=== PATIENT | female | born 1985 | race Caucasian/White ===

== ENCOUNTER 2016-09-04 07:02 | Day surgery (SDC) | payer BC, MEDICARE ==
[~2016-09-04 07:02] MED LIST: ACETAMINOPHEN 1000MG/100 ML PREMIX IV ONE; BUPIVACAINE HCL IV ONE; CLINDAMYCIN 600MG/50ML PREMIX 50 ML IVPB ONE; FAMOTIDINE 20MG TABLET PO ONE; HYDROMORPHONE HCL IV ONE; HYDROMORPHONE HCL/PF 0.002 MG in 0.9 % SODIUM CHLORIDE 10ML VIA 0.998 ML IVP ONE; MECLIZINE 25 MG TABLET PO ONE; METOCLOPRAMIDE 10 MG TABLET PO ONE; [UNRECOGNIZED DRUG - OTHER] IV ONE
--- NOTE | 2016-09-04 07:26 | History and Physical Report ---
CHIEF COMPLAINT/HISTORY OF CHIEF COMPLAINT: This patient with a history of intractable lumbar radiculitis managed by spinal opioid infusion system has had some fluctuations in body weight with an increasing amount of pain at the pump pouch site at the posterior gluteal margin. A surgical evaluation had suggested it be moved to the abdomen. We saw the patient on evaluation and thought that perhaps moving it above the belt line would be a better option. Since moving it across towards the abdominal region would require a catheter resection. We thought we could stabilize the pump, get it away from the posterior gluteal margin, put it above the belt line and meet all of the requirements and at the same time not require a catheter revision. The patient liked the idea and is here for pump relocation. PAST MEDICAL HISTORY: Noncontributory. PAST SURGICAL HISTORY: Pump implant. MEDICATIONS ON ADMISSION: List to be provided. ALLERGIES: None. FAMILY/PSYCHOSOCIAL HISTORY: Cigarette smoking. Caffeine consumption. Family history - Asthma and cancer. SYSTEMS REVIEW: The patient is appropriate in no acute distress. The remainder of the systems review is positive for degenerative arthritis. PHYSICAL EXAMINATION: Height is 5'7", weight is 200 pounds. No vital signs. HEENT: Within normal limits. LUNGS: Clear. HEART: Regular rate and rhythm. ABDOMEN: Nontender. MUSCULOSKELETAL: Examination of the musculoskeletal system shows the pump in the posterior gluteal margin. The incisional site is intact. The pump at the left posterior gluteal margin incision is intact. Sensory edwards are intact. NEUROLOGIC: Cranial nerves are intact. IMPRESSION: 1. INTRACTABLE LUMBAR RADICULITIS. 2. INTERSPINAL OPIOID INFUSION SYSTEM HYDROMORPHONE. PLAN: The patient is here for relocation of the pump because of discomfort, weight loss, and shifting of the pump within the pouch. The procedure will be considered outpatient. The patient understands that this will require an entirely new incision and that she will exit the room with two incisions, one the previous pouch and the other new pouch. The risks, side effects, and complications have been carefully reviewed and discussed, she understands and has consented. ROSETTE BELLO D.O. Date & Time JOB NUMBER: [id number] [facility]
[2016-09-04] MEDS ORDERED: BUPIVACAINE 0.5% W/EPI MPF 30 ML VIAL IVP ONE (12:46)
[2016-09-04] MEDS ORDERED: LIDOCAINE 1% W/EPI 1:200,000 MPF 30ML SQ ONE (12:46)
[2016-09-04] MEDS ORDERED: CLINDAMYCIN 600MG/4 ML VIAL IV ONE (12:46)
[2016-09-04] MEDS ORDERED: HYDROMORPHONE HCL 2 MG/ML VIAL IV ONE (12:46)
[2016-09-04] MEDS ORDERED: OXYCODONE/APAP 10MG-325MG TABLET PO ONE (12:46)
[2016-09-04] MEDS ORDERED: MIDAZOLAM HCL 2MG/2ML VIAL IV ONE (15:53)
[2016-09-04] MEDS ORDERED: FENTANYL PF 100MCG/2ML VIAL IV ONE (15:53)
[2016-09-04] MEDS ORDERED: LIDOCAINE 2% MDV (20MG/ML) 20ML VIAL IV ONE (15:53)
[2016-09-04] MEDS ORDERED: PROPOFOL 10 MG/ML VIAL IV ONE (15:53)
[2016-09-04] MEDS ORDERED: *PACU ONLY* KETAMINE HCL 10 MG/ML (20ML) VIAL IV ONE (15:53)
--- NOTE | 2016-09-04 16:45 | Operative Note - [place] ---
DATE OF SURGERY: 09/04/16 PREOPERATIVE DIAGNOSES: 1. INTRACTABLE LUMBAR RADICULITIS. 2. SPINAL OPIOID INFUSION SYSTEM WITH PAIN AT PUMP POUCH. OPERATION: 1. FLUOROSCOPICALLY-GUIDED INCISION, SUBCUTANEOUS DISSECTION, AND REMOVAL OF PUMP AT LEFT POSTERIOR GLUTEAL MARGIN BELOW BELT LINE. 2. INCISION, SUBCUTANEOUS DISSECTION, AND CREATION OF SUBCUTANEOUS POUCH LEFT FLANK ABOVE BELT LINE. 3. RESECTION INTERNAL SPINAL CATHETER AT INITIAL PUMP POUCH BELOW BELT LINE. INTERFACE INDWELLING CATHETER WITH SECONDARY CATHETER COMPONENT BY WAY OF CONNECTOR. 4. TUNNELING AND PLACEMENT OF REVISED CATHETER INTO FLANK POUCH. 5. INTERFACE NEW PUMP FILLED HYDROMORPHONE/BUPIVACAINE WITH RESECTED CATHETER. PLACEMENT OF PUMP CATHETER COMBINATION INTO FLANK POUCH SECURING TO POSTERIOR FASCIA USING NONABSORBABLE SUTURE TWO POINTS PUMP EYELETS. 6. WITH PUMP INTO FLANK POUCH, 24-GAUGE MATSON NEEDLE THROUGH ACCESS PORT CLEARING PUMP CATHETER OF OPIOID AND CSF MIXTURE. 7. DIAGNOSTIC MYELOGRAPHY WITH RADIOLOGIC SUPERVISION AND INTERPRETATION CONFIRMING CATHETER POSITION L1. 8. CLOSURE OF BOTH INCISIONS VICRYL FOR FASCIA, RUNNING SUBCUTICULAR VICRYL FOR SKIN. DERMABOND CLOSURE. 9. PROGRAMMING OF PUMP INITIAL PARAMETERS HYDROMORPHONE AND BUPIVACAINE AT 3.9 MG PER DAY. SURGEON: EUSEBIO RENDON D.O. ANESTHESIA: LOCAL SEDATION. ANESTHESIA PROVIDER: WANG FITZGERALD CRNA. INDICATION: This patient presents with a history of intractable lumbar radiculitis managed with a spinal opioid infusion system Hydromorphone and Bupivacaine. The pump position was below the belt line on the left. Because of weight loss and usage with respect to pump migration from weight loss, the pump pouch and pump became painful limited with respect to activities. After multiple conservative efforts failed to desensitizing the area, the patient requested relocation of the pump above the belt line. Because the pump is being removed and repositioned into a location multiple pump diameters away from the initial site, it was felt appropriate to replace the pump. The pump was being refilled at the same time. A catheter resection will be necessary to extend the catheter into the new pouch. PROCEDURE: Intravenous line, vital sign monitoring, IV sedation by Anesthesia. Patient position prone. Sterile prep, sterile technique and under imaging, the previous pump below the belt line infiltrated, incision made, and subcutaneous dissection was conducted to the pump. The pump was removed intact along with the Dacron sleeve. The catheter and the pouch were clamped above the belt line at a site picked by the patient. Skin infiltrated, incision made, and subcutaneous dissection was used to form a pouch of suitable size and depth for the pump at the left flank. Antibiotic irrigation. Bovie for hemostasis. A tunneling tool was then used to carry a new pump catheter component interfaced to the pump from the new pouch down into the previous pouch. The second catheter was then interfaced with the indwelling catheter. A catheter resection was performed interfacing indwelling with second catheter by way of connector. A new pump placed onto the field, 20 mL Programmable [employer] filled previous with Hydromorphone and Bupivacaine. The revised catheter was then interfaced to the pump. The pump was placed into the new pouch and secured to the posterior fascia using nonabsorbable suture. A 24-gauge Matson needle was then inserted into the access port and 1 mL of catheter contents including opioid and CSF was aspirated clearing the catheter of opioid and CSF mixture. Contrast was then injected through the access port, the resulting flow characteristics showed integrity of the system including the new revised catheter. Catheter tip identified in the spinal space at L1. Antibiotic irrigation. Bovie for hemostasis. Both incisions were then closed Vicryl for fascia, running subcuticular Vicryl for skin. Dermabond closure system placed. The pump was then programmed back to its original parameters infusing Hydromorphone and Bupivacaine. She was transported to the Recovery Room, stable, showing no side- effects from the procedure or the sedation. She will be monitored until stable then discharged. DISCHARGE INSTRUCTIONS: 1. The sites will remain clean and dry although the Dermabond will allow showering. 2. Standard medications resumed including the antibiotic, Levaquin 500 mg once a day for 14 days. 3. The patient will be seen in the office in 5-7 days then evaluated for increasing activities. All other instructions provided, numbers to contact, problems given. She will then be discharged. Eusebio Rendon D.O. Date & Time cc: Dr. Gary JOB NUMBER: [id number] [facility]
== END 2016-09-04 11:30 | disposition home or self-care (01) ==
LOC: SUR 07:02
PROVIDERS: ATTEND Pain Medicine Interventional Pain Medicine
DX: T85.840A Pain due to nervous system prosthetic devices, implants and grafts, initial encounter (principal); M54.16 Radiculopathy, lumbar region; F17.200 Nicotine dependence, unspecified, uncomplicated
CPT/HCPCS: 62367; 81025; C1755; J1170